=== PATIENT | male | born 1935 | race Caucasian/White ===

== ENCOUNTER 2017-11-04 11:18 | Inpatient (IN) | payer MEDICARE ==
[~2017-11-04] VITALS: Ht 167.6 cm; Wt 62.7 kg
[2017-11-04] VITALS (7 sets, daily range): BP systolic 115–139; BP diastolic 50–71
--- NOTE | ~2017-11-04 | PROC NOTE ---
[place], [place] PROCEDURE NOTE NAME: JANEL BRADEN UNIT #: [id number] ROOM: 424 DOCTOR: BRYN JORDAN BIRTHDATE: [birth year] DOS: 11/05/2017 MODIFIED BARIUM SWALLOW LOCATION: [facility], room 424, bed 1. ORDERING PHYSICIAN: Dr. Gibbs RADIOLOGIST: Dr. Recinos. BACKGROUND INFORMATION: The patient, an 82-year-old male was seen for modified barium swallow. This test was ordered to rule out aspiration. The patient was admitted to the Emergency Department after several days of shortness of breath, cough and diarrhea. He is diagnosed with acute respiratory failure, severe sepsis, pneumonia, hypertension, aortic valve replacement, GERD, peptic ulcer, CHF and COPD. The patient reports that he has been choking with liquids and feeling like foods are sticking in his throat. He currently receives a regular diet and thin liquids. He was alert and cooperative and able to follow all commands for the assessment. He was receiving oxygen via nasal cannula and no respiratory difficulties were observed. Oral peripheral examination revealed dry oral mucosa. The patient presented with top and bottom dentures, loose fitting bottom dentures were noted. Lingual, labial, and buccal skills were within normal limits in terms of strength, range of motion, and coordination. Volitional cough and swallow were adequate. METHODS AND MATERIALS USED FOR THE EXAM: The patient was positioned in the lateral plane and the exam was viewed under fluoroscopy. The patient was presented with a variety of consistencies to assess swallowing skills including applesauce mixed with barium presented in half teaspoon amounts, barium-coated cookie presented in bite size pieces and thin liquid barium taken by cup. The patient consumed liquids independently by cup and sip size amounts. ORAL PHASE: Adequate labial seal was achieved around cup and spoon with no anterior loss. Bolus formation and transit were adequate. Slow mastication of solid was observed. Piecemeal swallow was observed with puree and solid consistencies. The patient achieved adequate tongue to palate contact. Tongue to posterior pharyngeal wall contact was mildly impaired. Velar functioning was within normal limits with no nasal regurgitation. PHARYNGEAL PHASE: The pharyngeal swallow occurred within a timely manner. Laryngeal elevation and epiglottic function were within normal limits with no penetration or aspiration occurring with any consistency. Pooling in the vallecula was observed with puree and solids. This mostly cleared with cues to use liquid wash or a subsequent swallow. ESOPHAGEAL PHASE: This phase of the swallow was not formally assessed during this examination. IMPRESSIONS AND RECOMMENDATIONS: Based upon assessment results, this 82-year-old patient presents with a mild oropharyngeal dysphagia. He exhibited [place], [place] PROCEDURE NOTE NAME: JANEL BRADEN UNIT #: [id number] ROOM: 424 DOCTOR: BRYN JORDAN BIRTHDATE: [birth year] slow mastication of solid, piecemeal swallow with puree and solids and pooling in the vallecula, which mostly cleared when given cues to use subsequent swallow or liquid wash. No penetration or aspiration occurred with any consistency. Recommend the patient receive a soft diet and thin liquids. Recommend he implements safe swallow strategies such as small bites and sips, alternating food and liquid and double swallow to clear the pharynx. Followup therapy is recommended for tongue base range of motion exercises, education and use of safety strategies to ensure tolerance of highest level diet. Results and recommendations were shared with the patient and his nurse and they verbalized understanding. Thank you very much for this referral. Should you have any questions regarding this patient, please contact this speech pathologist at [phone]. BRYN JORDAN CM:PROCNOTE:PROCEDURE NOTE [id number] BRYN JORDAN
[~2017-11-04 11:18] MED LIST: ASPIRIN81 M1 PO; BUSPAR5 MG PO; COMBIVENT RESPIM4 GM INH; COUMADIN6 M1 PO; CRESTOR10 M1 PO; DIGOXIN0.125 MG PO; DULERA100; HYDROCHLOROTHIA1 TA2 PO; LIBRIUM10 MG PO; LIPOFEN50 MG PO; LOPRESSOR25 MG PO; LOSARTAN POTASS25 MG PO; OMEPRAZOLE20 MG PO; VITAMIN D1000 IU PO; XALATAN 0.005%2.5 ML INTRAOC
[2017-11-04] MEDS ORDERED: GOOD NEIGHBOR150 M1 PO (11:39)
[2017-11-04] MEDS ORDERED: COZAAR50 M1 PO (11:40)
[2017-11-04] MEDS ORDERED: METOPROLOL SUCC50 M2 PO (11:40)
[2017-11-04] MEDS ORDERED: PANTOPRAZOLE SO20 MG PO (11:41)
[2017-11-04] MEDS ORDERED: DIAZEPAM2 MG PO (11:41)
[2017-11-04] MEDS ORDERED: SYMB160 INH (11:42)
[2017-11-04 12:10] LABS: HEMATOCRIT 37.5 % (42.0-52.0); HEMOGLOBIN 12.1 g/dl (14.0-18.0); MEAN CORPUSCULAR HGB 30.3 pg (27.0-31.0); MEAN CORPUSCULAR HGB CONC 32.3 g/dl (33.0-37.0); MEAN PLATELET VOLUME 9.5 fl (9.6-12.3); PLATELET COUNT AUTOMATED 202 10*3/uL (130-400); RED BLOOD COUNT 3.99 10*6/uL (4.50-5.90); RED CELL DISTRI WIDTH 17.6 % (0-14.5); WHITE BLOOD COUNT 9.9 10*3/uL (4.8-10.8)
[2017-11-04 12:21] LABS: INTERNATIONAL NORM RATIO 2.4 (2.0-3.5)
[2017-11-04 12:26] LABS: ALKALINE PHOSPHATASE 85 U/L (45-117); BUN 35 mg/dl (7-24); CHLORIDE 104 mmol/L (98-107); CREATININE 1.51 mg/dL (0.70-1.30); LIPASE 80 U/L (73-393); POTASSIUM 4.1 mmol/L (3.5-5.1); SGOT/AST 12 IU/L (3-35); SGPT/ALT 19 U/L (12-78); SODIUM 138 mmol/L (136-145); TOTAL PROTEIN 7.9 gm/dL (6.4-8.2)
[2017-11-04 12:29] LABS: PLATELET SUFFICIENCY NORMAL (NORMAL); TOTAL CELLS COUNTED 100 #CELLS
[2017-11-04 12:30] LABS: BURR CELLS FEW; ROULEAUX SLIGHT
[2017-11-04 12:31] LABS: TROPONIN I < 0.015 ng/ml (<0.045)
[2017-11-04] MEDS ORDERED: METOPROLOL25 MG PO (15:59)
[2017-11-04] MEDS ORDERED: IRON325 M1 PO (16:00)
[2017-11-04] MEDS ORDERED: HYDROCHLOROTHIA25 M1 PO (16:02)
[2017-11-04] MEDS ORDERED: BUSPAR5 MG PO (16:03)
[2017-11-04] MEDS ORDERED: [UNRECOGNIZED DRUG - CODE] IM (16:59)
[2017-11-04] MEDS ORDERED: Coumadin3 MG PO (19:47)
[2017-11-04] MEDS ORDERED: COUMADIN6 M2 PO (19:47)
[2017-11-05] VITALS: BP 134/60
[2017-11-05 07:53] LABS: BASO % 0.2 % (0.0-1.0); EOS # 0.1 10*3/uL (0.0-0.4); EOS % 0.8 % (1.0-4.0); LYMPH # 0.5 10*3/uL (1.3-4.4); LYMPH % 8.4 % (27.0-41.0); MEAN CELL VOLUME 96.5 fl (80.0-94.0); MEAN CORPUSCULAR HGB 30.9 pg (27.0-31.0); MEAN PLATELET VOLUME 9.7 fl (9.6-12.3); MONO # 0.3 10*3/uL (0.1-1.0); MONO % 4.2 % (3.0-9.0); NEUT # 5.3 10*3/uL (2.3-7.9); NEUT % 85.8 % (47.0-73.0); PLATELET COUNT AUTOMATED 157 10*3/uL (130-400); RED BLOOD COUNT 3.11 10*6/uL (4.50-5.90); RED CELL DISTRI WIDTH 17.3 % (0-14.5); WHITE BLOOD COUNT 6.2 10*3/uL (4.8-10.8)
[2017-11-05 07:56] LABS: HEMOGLOBIN 9.6 g/dl (14.0-18.0)
[2017-11-05 08:00] VITALS: BP 124/64
[2017-11-05 08:18] LABS: ALBUMIN 2.1 gm/dl (3.1-4.5); CHLORIDE 111 mmol/L (98-107); CHOLESTEROL 89 mg/dL (<200); CREATININE 0.97 mg/dL (0.70-1.30); PHOSPHOROUS 2.3 mg/dL (2.5-4.9); POTASSIUM 3.7 mmol/L (3.5-5.1); SGOT/AST 14 IU/L (3-35); SGPT/ALT 12 U/L (12-78); SODIUM 143 mmol/L (136-145); TOTAL PROTEIN 5.8 gm/dL (6.4-8.2); TRIGLYCERIDES 142 mg/dl (<150); VLDL CHOLESTEROL 28 mg/dL (6-40)
[2017-11-05 08:23] LABS: INTERNATIONAL NORM RATIO 3.4 (2.0-3.5)
[2017-11-05 08:28] LABS: ALKALINE PHOSPHATASE 57 U/L (45-117); HDL CHOLESTEROL 27 mg/dl (40-60); LDL CHOLESTEROL 34 mg/dL (9-159)
[2017-11-05 08:38] LABS: BUN 23 mg/dl (7-24)
[2017-11-05 08:57] LABS: VITAMIN D, 25-HYDROXY 18.7 ng/mL (30-100)
[2017-11-05 12:00] VITALS: BP 134/65
[2017-11-05 16:00] VITALS: BP 102/49
[2017-11-05 20:00] VITALS: BP 116/55
[2017-11-06] VITALS: BP 128/74
[2017-11-06 07:24] LABS: BASO % 0.4 % (0.0-1.0); EOS # 0.2 10*3/uL (0.0-0.4); EOS % 3.9 % (1.0-4.0); HEMATOCRIT 28.7 % (42.0-52.0); LYMPH # 0.4 10*3/uL (1.3-4.4); MEAN CELL VOLUME 98.3 fl (80.0-94.0); MEAN CORPUSCULAR HGB 30.8 pg (27.0-31.0); MEAN CORPUSCULAR HGB CONC 31.4 g/dl (33.0-37.0); MEAN PLATELET VOLUME 9.5 fl (9.6-12.3); MONO # 0.4 10*3/uL (0.1-1.0); MONO % 6.5 % (3.0-9.0); NEUT # 4.3 10*3/uL (2.3-7.9); NEUT % 80.5 % (47.0-73.0); PLATELET COUNT AUTOMATED 161 10*3/uL (130-400); RED BLOOD COUNT 2.92 10*6/uL (4.50-5.90); RED CELL DISTRI WIDTH 17.3 % (0-14.5); WHITE BLOOD COUNT 5.4 10*3/uL (4.8-10.8)
[2017-11-06 07:38] LABS: BUN 17 mg/dl (7-24); CHLORIDE 115 mmol/L (98-107); CREATININE 0.89 mg/dL (0.70-1.30); SODIUM 146 mmol/L (136-145)
[2017-11-06 07:47] LABS: INTERNATIONAL NORM RATIO 3.9 (2.0-3.5)
[2017-11-06 08:00] VITALS: BP 140/74
[2017-11-06 12:00] VITALS: BP 154/65
[2017-11-06 16:00] VITALS: BP 124/55
[2017-11-06 20:00] VITALS: BP 100/85
[2017-11-07] VITALS: BP 136/64
[2017-11-07 08:00] VITALS: BP 114/54
[2017-11-07 08:08] LABS: HEMATOCRIT 27.9 % (42.0-52.0); MEAN CELL VOLUME 93.3 fl (80.0-94.0); MEAN CORPUSCULAR HGB 30.1 pg (27.0-31.0); MEAN CORPUSCULAR HGB CONC 32.3 g/dl (33.0-37.0); MEAN PLATELET VOLUME 9.3 fl (9.6-12.3); PLATELET COUNT AUTOMATED 162 10*3/uL (130-400); RED BLOOD COUNT 2.99 10*6/uL (4.50-5.90); RED CELL DISTRI WIDTH 16.9 % (0-14.5); WHITE BLOOD COUNT 3.9 10*3/uL (4.8-10.8)
[2017-11-07 08:31] LABS: OVALOCYTES FEW; PLATELET SUFFICIENCY NORMAL (NORMAL); POLYCHROMASIA SLIGHT; TOTAL CELLS COUNTED 100 #CELLS
[2017-11-07 08:37] LABS: ALBUMIN 2.3 gm/dl (3.1-4.5); ALKALINE PHOSPHATASE 59 U/L (45-117); BUN 20 mg/dl (7-24); CHLORIDE 110 mmol/L (98-107); POTASSIUM 3.3 mmol/L (3.5-5.1); SGOT/AST 12 IU/L (3-35); SGPT/ALT 20 U/L (12-78); SODIUM 144 mmol/L (136-145); TOTAL PROTEIN 6.1 gm/dL (6.4-8.2)
[2017-11-07 08:40] LABS: INTERNATIONAL NORM RATIO 3.8 (2.0-3.5)
[2017-11-07 12:00] VITALS: BP 112/50
[2017-11-07 16:00] VITALS: BP 118/66
[2017-11-07 20:00] VITALS: BP 115/51
[2017-11-08] VITALS: BP 125/77
[2017-11-08 08:00] VITALS: BP 130/54
[2017-11-08 08:18] LABS: HEMATOCRIT 29.6 % (42.0-52.0); HEMOGLOBIN 9.2 g/dl (14.0-18.0); MEAN CELL VOLUME 94.9 fl (80.0-94.0); MEAN CORPUSCULAR HGB 29.5 pg (27.0-31.0); MEAN CORPUSCULAR HGB CONC 31.1 g/dl (33.0-37.0); MEAN PLATELET VOLUME 9.6 fl (9.6-12.3); PLATELET COUNT AUTOMATED 207 10*3/uL (130-400); RED BLOOD COUNT 3.12 10*6/uL (4.50-5.90); RED CELL DISTRI WIDTH 17.2 % (0-14.5); WHITE BLOOD COUNT 6.7 10*3/uL (4.8-10.8)
[2017-11-08 08:39] LABS: BUN 28 mg/dl (7-24); CHLORIDE 112 mmol/L (98-107); CREATININE 1.06 mg/dL (0.70-1.30); POTASSIUM 3.8 mmol/L (3.5-5.1); SODIUM 145 mmol/L (136-145)
[2017-11-08 08:43] LABS: INTERNATIONAL NORM RATIO 3.2 (2.0-3.5)
[2017-11-08 09:20] LABS: OVALOCYTES MODERATE; PLATELET SUFFICIENCY NORMAL (NORMAL); ROULEAUX SLIGHT; TOTAL CELLS COUNTED 100 #CELLS
[2017-11-08 12:00] VITALS: BP 136/56
[2017-11-08 16:00] VITALS: BP 139/63
[2017-11-08 20:00] VITALS: BP 119/59
[2017-11-09] VITALS: BP 141/70
[2017-11-09 08:00] VITALS: BP 150/74
[2017-11-09 08:38] LABS: INTERNATIONAL NORM RATIO 2.7 (2.0-3.5)
[2017-11-09] MEDS ORDERED: MECLIZINE HCL25 M2 PO (10:45)
[2017-11-09] MEDS ORDERED: Coumadin3 MG PO (10:47)
[2017-11-09] MEDS ORDERED: DOXYCYCLINE100 M3 PO (10:47)
[2017-11-09] MEDS ORDERED: FLAGYL500 MG PO (10:47)
[2017-11-09 12:00] VITALS: BP 141/85
== END 2017-11-09 16:42 | disposition home health service (06) | DRG 871 ==
LOC: ED 11:18 → 4E 13:41 → EDHOLD 13:41 → 4E 13:57
PROVIDERS: Emergency Medicine; Internal Medicine; Internal Medicine Hospice and Palliative Medicine; Student in an Organized Health Care Education/Training Program
DX: A41.9 Sepsis, unspecified organism (principal); J69.0 Pneumonitis due to inhalation of food and vomit; J96.00 Acute respiratory failure, unspecified whether with hypoxia or hypercapnia; N17.0 Acute kidney failure with tubular necrosis; E44.0 Moderate protein-calorie malnutrition; K57.32 Diverticulitis of large intestine without perforation or abscess without bleeding; E83.39 Other disorders of phosphorus metabolism; I50.32 Chronic diastolic (congestive) heart failure; J90 Pleural effusion, not elsewhere classified; E87.2 Acidosis; J98.11 Atelectasis; I11.0 Hypertensive heart disease with heart failure; D64.9 Anemia, unspecified; R65.20 Severe sepsis without septic shock; E83.41 Hypermagnesemia; E80.6 Other disorders of bilirubin metabolism; E78.00 Pure hypercholesterolemia, unspecified; F41.1 Generalized anxiety disorder; R73.9 Hyperglycemia, unspecified; J43.9 Emphysema, unspecified; M34.9 Systemic sclerosis, unspecified; N40.0 Benign prostatic hyperplasia without lower urinary tract symptoms; J84.10 Pulmonary fibrosis, unspecified; K21.9 Gastro-esophageal reflux disease without esophagitis; E78.5 Hyperlipidemia, unspecified; K57.30 Diverticulosis of large intestine without perforation or abscess without bleeding; K27.9 Peptic ulcer, site unspecified, unspecified as acute or chronic, without hemorrhage or perforation; R13.12 Dysphagia, oropharyngeal phase; Z87.442 Personal history of urinary calculi; Z95.2 Presence of prosthetic heart valve; Z90.49 Acquired absence of other specified parts of digestive tract; Z85.820 Personal history of malignant melanoma of skin; Z87.891 Personal history of nicotine dependence; Z88.6 Allergy status to analgesic agent; Z79.899 Other long term (current) drug therapy; Z79.82 Long term (current) use of aspirin; Z79.01 Long term (current) use of anticoagulants; Z68.21 Body mass index [BMI] 21.0-21.9, adult

== ENCOUNTER 2018-01-06 13:45 | Inpatient (IN) | payer MEDICARE ==
[2018-01-06] VITALS (8 sets, daily range): BP systolic 118–142; BP diastolic 55–80
[~2018-01-06] VITALS: Ht 170.1 cm; Wt 62.1 kg
--- NOTE | ~2018-01-06 | PROC NOTE ---
[place], [place] PROCEDURE NOTE NAME: JANEL BRADEN UNIT #: [id number] ROOM: 508 DOCTOR: JASE BRANHAM BIRTHDATE: [birth year] DOS: 01/08/2018 MBSS REPORT REFERRING PHYSICIAN: Dr. Gibbs. RADIOLOGIST: Dr. Recinos. The patient was seen on 01/08/2018 for an MBS. He was admitted to the hospital on 01/06/2018 and diagnosed with pneumonia. He is known to this service through previous hospital admission in October 2017. During this time, an MBS was completed, prolonged mastication, piecemeal swallow and pharyngeal residue were noted at this time. He was recommended a diet of soft foods and thin liquids as well as aspiration precautions (awake, alert and upright with all p.o., small bites/sips, alternating bites/sips and multiple swallows). He is currently on a regular diet with thin liquids. GENERAL COMMENTS: The patient was seated upright in chair. He was awake, alert, oriented and pleasant. The patient recalled recent dysphagia evaluation and recommended strategies. MATERIALS: Exam was viewed in the lateral plane. The patient self fed the following barium impregnated consistencies, single of thin liquid via cup x 2, multiple consecutive sips of thin liquids via cup x 1, teaspoons of pureed x 1 and bite of coarse solids x 1. ORAL PHASE: Adequate bolus acceptance with no anterior loss noted. Anterior, posterior bolus transit was adequate and timely. The patient demonstrated prolonged mastication with solid consistency. No oral residue appreciated. PHARYNGEAL PHASE: The patient displayed adequate swallow initiation time, hyolaryngeal excursion and epiglottic retroflexion. The patient exhibited one instance of transient penetration during his first sip of thin liquid. No penetration/aspiration occurred during the remaining presentations of thin liquid, puree or solids. False Positive coughing was noted. Base of tongue to posterior pharyngeal wall contact was mildly reduced with resulting mild amounts of residue noted in the piriform sinuses and on the posterior pharyngeal wall across consistencies, but this cleared with subsequent swallows. UES: Unremarkable. IMPRESSION: The patient presents with normal swallowing function at this time. FINDINGS: This day were consistent with previous MBS findings (October 2017). One instance of transient penetration noted; however, no aspiration occurred. The patient with pharyngeal residue; however, this cleared with subsequent swallows. RECOMMENDATIONS: 1. Continue current diet of regular food with thin liquids (discussed choosing [place], [place] PROCEDURE NOTE NAME: JANEL BRADEN UNIT #: [id number] ROOM: 508 DOCTOR: JASE BRANHAM BIRTHDATE: [birth year] softer options with the patient given prolonged mastication). 2. Aspiration precautions. Awake, alert and upright for all p.o., small bites/sips, alternating bites/sips, multiple swallows, oral care at least twice a day. PLAN OF CARE: No further followup is indicated at this time. Please reconsult if additional concerns for dysphagia/aspiration arise. Thank you for consulting. Please contact the DIRECTOR OF RESEARCH Department at [phone] with any questions/concerns. Jase Dinero CM:PROCNOTE:PROCEDURE NOTE [id number] JASE BRANHAM
--- NOTE | ~2018-01-06 | PROC NOTE ---
[place], [place] PROCEDURE NOTE NAME: JANEL BRADEN UNIT #: [id number] ROOM: 508 DOCTOR: JASE BRANHAM BIRTHDATE: [birth year] DOS: 01/08/2018 MBSS REPORT REFERRING PHYSICIAN: Dr. Gibbs. Radiologist: Dr. Recinos. HISTORY OF PRESENT ILLNESS: The patient was seen on 01/08/2018 for an MBS. He was admitted to the hospital on 01/06/2018 and diagnosed with pneumonia. He is known to this service through previous hospital admission in October 2017. During this time, an MBS was completed. Prolonged mastication piecemeal swallow and pharyngeal residue were noted at this time. He was recommended a diet of soft foods and thin liquids as well as aspiration precautions (awake, alert and upright for all p.o. small bites/sips, alternating bites/sips and multiple swallows). He is currently on a regular diet with thin liquids. GENERAL COMMENTS: The patient was seated upright in chair. He was awake, alert, oriented and pleasant. The patient recalled recent dysphagia evaluation and recommended strategies. MATERIALS: Exam was viewed in the lateral plane. The patient self-said the following barium impregnated consistencies; single sips of thin liquids via cup x 2, multiple consecutive sips of thin liquids via cup x 1, teaspoon of pureed x 1 and bites of coarse solids x 1. ORAL PHASE: Adequate bolus acceptance with no anterior loss noted. Anterior to posterior bolus transit was adequate and timely. The patient demonstrated prolonged mastication with solid consistency. No oral residue appreciated. PHARYNGEAL PHASE: Patient displayed adequate swallow initiation time, hyolaryngeal excursion and epiglottic retroflexion. The patient exhibited one instance of transient penetration during his first sip of thin liquid. No penetration/aspiration occurred during the remaining presentations of thin liquid, puree or solids. False positive coughing was noted. Base of tongue to posterior pharyngeal wall contact was mildly reduced with resulting mild amounts of residue noted in the piriform sinuses and on the posterior pharyngeal wall across consistencies, but this cleared with subsequent swallows. UES unremarkable. IMPRESSION: The patient presents with normal swallowing function at this time. Findings on this date were consistent with previous MBS findings (October 2017). One instance of transient penetration noted; however, no aspiration occurred. The patient with pharyngeal residue; however, this cleared with subsequent swallows. RECOMMENDATIONS: 1. Continue current diet of regular food with thin liquids (discussed using softer options with the patient given prolonged mastication). [place], [place] PROCEDURE NOTE NAME: JANEL BRADEN UNIT #: [id number] ROOM: [facility] DOCTOR: JASE BRANHAM BIRTHDATE: [birth year] 2. Aspiration precautions. Awake, alert, in upright for all p.o., small bites/sips, alternating bites/sips, multiple swallows, oral care at least twice a day. PLAN OF CARE: No further followup is indicated at this time. Please reconsult if additional concerns for dysphagia/aspiration arise. Thank you for consulting. Please contact the [facility] ON CALL MEDICAL ASSISTANT Department at [phone] with any questions/concerns. Jase Dinero CM:PROCNOTE:PROCEDURE NOTE [id number] JASE BRANHAM
[~2018-01-06 13:45] MED LIST changes: +COUMADIN6 M2 PO; +COZAAR50 M1 PO; +Coumadin3 MG PO; +DIAZEPAM2 MG PO; +DOXYCYCLINE100 M3 PO; +FLAGYL500 MG PO; +GOOD NEIGHBOR150 M1 PO; +HYDROCHLOROTHIA25 M1 PO; +IRON325 M1 PO; +MECLIZINE HCL25 M2 PO; +METOPROLOL SUCC50 M2 PO; +METOPROLOL25 MG PO; +PANTOPRAZOLE SO20 MG PO; +SYMB160 INH; +[UNRECOGNIZED DRUG - CODE] IM
[2018-01-06 14:35] LABS: BASO % 0.2 % (0.0-1.0); EOS % 0.4 % (1.0-4.0); HEMATOCRIT 36.3 % (42.0-52.0); HEMOGLOBIN 11.9 g/dl (14.0-18.0); LYMPH # 0.5 10*3/uL (1.3-4.4); LYMPH % 6.2 % (27.0-41.0); MEAN CELL VOLUME 99.5 fl (80.0-94.0); MEAN CORPUSCULAR HGB 32.6 pg (27.0-31.0); MEAN CORPUSCULAR HGB CONC 32.8 g/dl (33.0-37.0); MEAN PLATELET VOLUME 9.2 fl (9.6-12.3); MONO # 0.7 10*3/uL (0.1-1.0); NEUT # 7.3 10*3/uL (2.3-7.9); PLATELET COUNT AUTOMATED 223 10*3/uL (130-400); RED BLOOD COUNT 3.65 10*6/uL (4.50-5.90); RED CELL DISTRI WIDTH 16.9 % (0-14.5); WHITE BLOOD COUNT 8.5 10*3/uL (4.8-10.8)
[2018-01-06 14:43] LABS: INTERNATIONAL NORM RATIO 2.5 (2.0-3.5)
[2018-01-06 14:59] LABS: BUN 30 mg/dl (7-24); CHLORIDE 103 mmol/L (98-107); CREATININE 1.26 mg/dL (0.70-1.30); POTASSIUM 3.6 mmol/L (3.5-5.1); SODIUM 138 mmol/L (136-145); TROPONIN I < 0.015 ng/ml (<0.045)
[2018-01-06] MEDS ORDERED: COUMADIN6 M2 PO (15:18)
[2018-01-06] MEDS ORDERED: COUMADIN10 M1 PO (15:20)
[2018-01-07] VITALS: BP 120/52
[2018-01-07 07:01] LABS: HEMATOCRIT 30.8 % (42.0-52.0); HEMOGLOBIN 10.1 g/dl (14.0-18.0); MEAN CELL VOLUME 98.4 fl (80.0-94.0); MEAN CORPUSCULAR HGB 32.3 pg (27.0-31.0); MEAN CORPUSCULAR HGB CONC 32.8 g/dl (33.0-37.0); MEAN PLATELET VOLUME 9.5 fl (9.6-12.3); PLATELET COUNT AUTOMATED 210 10*3/uL (130-400); RED BLOOD COUNT 3.13 10*6/uL (4.50-5.90); WHITE BLOOD COUNT 5.6 10*3/uL (4.8-10.8)
[2018-01-07 07:35] LABS: ALBUMIN 2.4 gm/dl (3.1-4.5); BUN 26 mg/dl (7-24); CHLORIDE 104 mmol/L (98-107); POTASSIUM 3.6 mmol/L (3.5-5.1); SODIUM 138 mmol/L (136-145)
[2018-01-07 07:37] LABS: PLATELET SUFFICIENCY NORMAL (NORMAL); TOTAL CELLS COUNTED 100 #CELLS
[2018-01-07 07:40] LABS: INTERNATIONAL NORM RATIO 3.9 (2.0-3.5)
[2018-01-07 07:42] LABS: ALKALINE PHOSPHATASE 68 U/L (45-117); CHOLESTEROL 83 mg/dL (<200); CREATININE 1.09 mg/dL (0.70-1.30); FREE T4 1.17 ng/dl (0.76-1.46); HDL CHOLESTEROL 32 mg/dl (40-60); LDL CHOLESTEROL 33 mg/dL (9-159); PHOSPHOROUS 3.5 mg/dL (2.5-4.9); SGOT/AST 14 IU/L (3-35); SGPT/ALT 14 U/L (12-78); TOTAL PROTEIN 6.4 gm/dL (6.4-8.2); TRIGLYCERIDES 88 mg/dl (<150); VLDL CHOLESTEROL 18 mg/dL (6-40)
[2018-01-07 08:00] VITALS: BP 131/56
[2018-01-07 08:01] LABS: BILIRUBIN 1+ (NEGATIVE); BLOOD NEGATIVE (NEGATIVE); CLARITY CLEAR (CLEAR); COLOR YELLOW (YELLOW); GLUCOSE NEGATIVE (NEGATIVE); KETONE NEGATIVE (NEGATIVE); LEUKO ESTERASE NEGATIVE (NEGATIVE); NITRITE NEGATIVE (NEGATIVE); UROBILINOGEN 0.2 E.U./dl (0.2-1.0)
[2018-01-07 08:08] LABS: BACTERIA TRACE; MUCOUS TRACE; RBC 0-2 rbc/hpf (0-2)
[2018-01-07 16:00] VITALS: BP 101/47
[2018-01-07 20:00] VITALS: BP 110/56
[2018-01-08] VITALS: BP 116/58
[2018-01-08 06:20] LABS: BASO % 0.2 % (0.0-1.0); HEMATOCRIT 29.5 % (42.0-52.0); HEMOGLOBIN 9.7 g/dl (14.0-18.0); LYMPH # 0.3 10*3/uL (1.3-4.4); LYMPH % 5.5 % (27.0-41.0); MEAN CELL VOLUME 100.3 fl (80.0-94.0); MEAN CORPUSCULAR HGB CONC 32.9 g/dl (33.0-37.0); MONO # 0.5 10*3/uL (0.1-1.0); MONO % 7.9 % (3.0-9.0); NEUT # 5.3 10*3/uL (2.3-7.9); NEUT % 85.6 % (47.0-73.0); PLATELET COUNT AUTOMATED 192 10*3/uL (130-400); RED BLOOD COUNT 2.94 10*6/uL (4.50-5.90); RED CELL DISTRI WIDTH 17.2 % (0-14.5); WHITE BLOOD COUNT 6.2 10*3/uL (4.8-10.8)
[2018-01-08 06:49] LABS: BUN 32 mg/dl (7-24); CHLORIDE 109 mmol/L (98-107); POTASSIUM 3.4 mmol/L (3.5-5.1); SODIUM 143 mmol/L (136-145)
[2018-01-08 08:00] VITALS: BP 109/50
[2018-01-08 12:00] VITALS: BP 118/64
[2018-01-08 16:00] VITALS: BP 132/68
[2018-01-08 20:00] VITALS: BP 136/52
[2018-01-09] VITALS: BP 116/60
[2018-01-09 06:48] LABS: BASO % 0.3 % (0.0-1.0); EOS # 0.1 10*3/uL (0.0-0.4); EOS % 1.5 % (1.0-4.0); HEMATOCRIT 30.1 % (42.0-52.0); HEMOGLOBIN 9.7 g/dl (14.0-18.0); LYMPH # 0.7 10*3/uL (1.3-4.4); LYMPH % 11.1 % (27.0-41.0); MEAN CELL VOLUME 101.7 fl (80.0-94.0); MEAN CORPUSCULAR HGB 32.8 pg (27.0-31.0); MEAN CORPUSCULAR HGB CONC 32.2 g/dl (33.0-37.0); MEAN PLATELET VOLUME 9.1 fl (9.6-12.3); MONO # 0.6 10*3/uL (0.1-1.0); NEUT # 4.8 10*3/uL (2.3-7.9); NEUT % 77.6 % (47.0-73.0); PLATELET COUNT AUTOMATED 239 10*3/uL (130-400); RED BLOOD COUNT 2.96 10*6/uL (4.50-5.90); RED CELL DISTRI WIDTH 17.2 % (0-14.5); WHITE BLOOD COUNT 6.1 10*3/uL (4.8-10.8)
[2018-01-09 07:12] LABS: BUN 26 mg/dl (7-24); CHLORIDE 111 mmol/L (98-107); CREATININE 0.97 mg/dL (0.70-1.30); INTERNATIONAL NORM RATIO 3.2 (2.0-3.5); POTASSIUM 4.2 mmol/L (3.5-5.1); SODIUM 143 mmol/L (136-145)
[2018-01-09 08:00] VITALS: BP 119/54
[2018-01-09 12:00] VITALS: BP 120/59
[2018-01-09 16:00] VITALS: BP 126/56
[2018-01-09 20:00] VITALS: BP 155/66
[2018-01-10] VITALS: BP 139/78
[2018-01-10 07:22] LABS: INTERNATIONAL NORM RATIO 2.4 (2.0-3.5)
[2018-01-10 08:00] VITALS: BP 132/62
[2018-01-10 12:00] VITALS: BP 135/60
[2018-01-10 16:07] VITALS: BP 147/74
[2018-01-10 20:24] VITALS: BP 125/59
[2018-01-11] VITALS: BP 91/50
[2018-01-11 04:00] VITALS: BP 145/70
[2018-01-11 06:24] LABS: INTERNATIONAL NORM RATIO 2.4 (2.0-3.5)
[2018-01-11 08:00] VITALS: BP 122/46
[2018-01-11] MEDS ORDERED: OXYGEN NAS (11:03)
[2018-01-11] MEDS ORDERED: DOXYCYCLINE100 M3 PO (11:03)
[2018-01-11 12:00] VITALS: BP 131/61
== END 2018-01-11 13:37 | disposition home or self-care (01) | DRG 871 ==
LOC: ED 13:45 → 5E 18:32 → EDHOLD 18:32 → 5E 18:38
PROVIDERS: Emergency Medicine; Hospitalist; Internal Medicine; Internal Medicine Nephrology
PROC: BD1BYZZ Fluoroscopy of Mouth/Oropharynx using Other Contrast (ICD-10-PCS; principal; 2018-01-08)
DX: A41.9 Sepsis, unspecified organism (principal); J18.1 Lobar pneumonia, unspecified organism; I11.0 Hypertensive heart disease with heart failure; J44.0 Chronic obstructive pulmonary disease with (acute) lower respiratory infection; I50.32 Chronic diastolic (congestive) heart failure; D53.9 Nutritional anemia, unspecified; K76.0 Fatty (change of) liver, not elsewhere classified; R73.9 Hyperglycemia, unspecified; E78.00 Pure hypercholesterolemia, unspecified; K57.30 Diverticulosis of large intestine without perforation or abscess without bleeding; K21.9 Gastro-esophageal reflux disease without esophagitis; F41.1 Generalized anxiety disorder; Z87.891 Personal history of nicotine dependence; Z79.01 Long term (current) use of anticoagulants; Z88.5 Allergy status to narcotic agent; Z79.2 Long term (current) use of antibiotics; Z51.81 Encounter for therapeutic drug level monitoring; Z79.82 Long term (current) use of aspirin; Z79.899 Other long term (current) drug therapy; Z90.49 Acquired absence of other specified parts of digestive tract; Z95.2 Presence of prosthetic heart valve; Z72.89 Other problems related to lifestyle; Z82.49 Family history of ischemic heart disease and other diseases of the circulatory system; Z85.820 Personal history of malignant melanoma of skin; Z87.442 Personal history of urinary calculi

== ENCOUNTER 2018-09-13 11:41 | Emergency (ER) | payer MEDICARE ==
[~2018-09-13] VITALS: Ht 167.6 cm; Wt 57.2 kg
[~2018-09-13 11:41] MED LIST changes: +COUMADIN10 M1 PO; +OXYGEN NAS
[2018-09-13 12:16] VITALS: BP 147/80
== END 2018-09-13 13:45 | disposition home or self-care (01) ==
LOC: ED 11:41
DX: I10 Essential (primary) hypertension (principal); H53.8 Other visual disturbances; Z88.5 Allergy status to narcotic agent; Z79.899 Other long term (current) drug therapy; Z79.82 Long term (current) use of aspirin; Z79.01 Long term (current) use of anticoagulants; Z87.442 Personal history of urinary calculi; Z87.891 Personal history of nicotine dependence

== ENCOUNTER 2018-10-28 17:04 | Emergency (ER) | payer OTHER ==
[~2018-10-28] VITALS: Ht 167.6 cm; Wt 56.2 kg
[2018-10-28 17:06] VITALS: BP 179/96
[2018-10-28 17:47] LABS: BASO % 0.5 % (0.0-1.0); EOS # 0.1 10*3/uL (0.0-0.4); EOS % 1.1 % (1.0-4.0); HEMATOCRIT 43.1 % (42.0-52.0); HEMOGLOBIN 14.2 g/dl (14.0-18.0); LYMPH # 1.3 10*3/uL (1.3-4.4); LYMPH % 15.6 % (27.0-41.0); MEAN CELL VOLUME 100.2 fl (80.0-94.0); MEAN CORPUSCULAR HGB CONC 32.9 g/dl (33.0-37.0); MEAN PLATELET VOLUME 8.7 fl (9.6-12.3); MONO # 0.5 10*3/uL (0.1-1.0); MONO % 6.3 % (3.0-9.0); NEUT # 6.5 10*3/uL (2.3-7.9); NEUT % 75.4 % (47.0-73.0); PLATELET COUNT AUTOMATED 379 10*3/uL (130-400); RED CELL DISTRI WIDTH 13.6 % (0-14.5); WHITE BLOOD COUNT 8.6 10*3/uL (4.8-10.8)
[2018-10-28 17:58] LABS: ACT PARTIAL THROMBO TIME 55.5 SECONDS (20.8-31.5); INTERNATIONAL NORM RATIO 4.2 (2.0-3.5)
[2018-10-28 17:59] LABS: BILIRUBIN NEGATIVE (NEGATIVE); BLOOD TRACE-INTACT (NEGATIVE); CLARITY CLEAR (CLEAR); COLOR YELLOW (YELLOW); GLUCOSE NEGATIVE (NEGATIVE); KETONE NEGATIVE (NEGATIVE); LEUKO ESTERASE NEGATIVE (NEGATIVE); NITRITE NEGATIVE (NEGATIVE); PH 6.5 (5.0-9.0); SPECIFIC GRAVITY 1.025 (1.005-1.030); UROBILINOGEN 0.2 E.U./dl (0.2-1.0)
[2018-10-28 18:02] LABS: ALBUMIN 2.9 gm/dl (3.1-4.5); ALKALINE PHOSPHATASE 90 U/L (45-117); BUN 13 mg/dl (7-24); CHLORIDE 107 mmol/L (98-107); CREATININE 1.04 mg/dL (0.70-1.30); POTASSIUM 3.9 mmol/L (3.5-5.1); SGOT/AST 25 IU/L (3-35); SGPT/ALT 26 U/L (12-78); SODIUM 143 mmol/L (136-145); TOTAL PROTEIN 7.3 gm/dL (6.4-8.2)
[2018-10-28 18:15] LABS: BACTERIA 1+; EPITHELIAL CELLS 0-2; HYALINE CAST 0-3
== END 2018-10-28 19:40 | disposition home or self-care (01) ==
LOC: ED 17:04
PROVIDERS: Physician Assistant
DX: R79.1 Abnormal coagulation profile (principal); R05 Cough; Z88.5 Allergy status to narcotic agent; Z79.2 Long term (current) use of antibiotics; Z79.82 Long term (current) use of aspirin; Z79.01 Long term (current) use of anticoagulants; Z79.899 Other long term (current) drug therapy; Z87.442 Personal history of urinary calculi; Z90.49 Acquired absence of other specified parts of digestive tract; Z87.891 Personal history of nicotine dependence

== ENCOUNTER → 2018-11-01 | Outpatient (CLI) | payer OTHER, MEDICARE ==
[2018-11-01 08:10] LABS: ACT PARTIAL THROMBO TIME 29.6 SECONDS (20.8-31.5); INTERNATIONAL NORM RATIO 1.1 (2.0-3.5)
== END | disposition home or self-care (01) ==
LOC: LAB 07:46
PROVIDERS: Physician Assistant
DX: Z79.01 Long term (current) use of anticoagulants (principal)

== ENCOUNTER 2018-12-23 09:44 | Emergency (ER) | payer OTHER, MEDICARE ==
[~2018-12-23] VITALS: Ht 167.6 cm; Wt 56.2 kg
[2018-12-23 09:45] VITALS: BP 163/60
[2018-12-23 10:05] LABS: BASO # 0.1 10*3/uL (0.0-0.1); BASO % 0.7 % (0.0-1.0); EOS # 0.1 10*3/uL (0.0-0.4); EOS % 1.2 % (1.0-4.0); HEMOGLOBIN 13.8 g/dl (14.0-18.0); LYMPH # 1.1 10*3/uL (1.3-4.4); LYMPH % 16.6 % (27.0-41.0); MEAN CELL VOLUME 104.5 fl (80.0-94.0); MEAN CORPUSCULAR HGB 34.3 pg (27.0-31.0); MEAN CORPUSCULAR HGB CONC 32.9 g/dl (33.0-37.0); MEAN PLATELET VOLUME 9.4 fl (9.6-12.3); MONO # 0.5 10*3/uL (0.1-1.0); MONO % 7.5 % (3.0-9.0); NEUT % 73.7 % (47.0-73.0); PLATELET COUNT AUTOMATED 231 10*3/uL (130-400); RED BLOOD COUNT 4.02 10*6/uL (4.50-5.90); RED CELL DISTRI WIDTH 14.6 % (0-14.5); WHITE BLOOD COUNT 6.8 10*3/uL (4.8-10.8)
[2018-12-23 10:12] LABS: INTERNATIONAL NORM RATIO 1.2 (2.0-3.5)
[2018-12-23 10:35] LABS: ALBUMIN 3.4 gm/dl (3.1-4.5); ALKALINE PHOSPHATASE 82 U/L (45-117); BUN 18 mg/dl (7-24); CHLORIDE 108 mmol/L (98-107); CREATININE 1.03 mg/dL (0.70-1.30); POTASSIUM 4.3 mmol/L (3.5-5.1); SGOT/AST 16 IU/L (3-35); SGPT/ALT 24 U/L (12-78); SODIUM 141 mmol/L (136-145); TOTAL PROTEIN 6.8 gm/dL (6.4-8.2)
== END 2018-12-23 14:20 | disposition home or self-care (01) ==
LOC: ED 09:44
PROVIDERS: Student in an Organized Health Care Education/Training Program
DX: R79.1 Abnormal coagulation profile (principal); J44.9 Chronic obstructive pulmonary disease, unspecified; I11.0 Hypertensive heart disease with heart failure; I50.9 Heart failure, unspecified; K21.9 Gastro-esophageal reflux disease without esophagitis; E78.00 Pure hypercholesterolemia, unspecified; Z90.49 Acquired absence of other specified parts of digestive tract; Z98.890 Other specified postprocedural states; Z79.01 Long term (current) use of anticoagulants; Z87.891 Personal history of nicotine dependence; Z87.442 Personal history of urinary calculi; Z88.5 Allergy status to narcotic agent; Z79.82 Long term (current) use of aspirin; Z79.899 Other long term (current) drug therapy

== ENCOUNTER → 2018-12-27 | Outpatient (CLI) | payer MEDICARE ==
[2018-12-27 09:04] LABS: INTERNATIONAL NORM RATIO 1.5 (2.0-3.5)
== END | disposition home or self-care (01) ==
LOC: LAB 08:11
PROVIDERS: Emergency Medicine
DX: Z79.01 Long term (current) use of anticoagulants (principal)

== ENCOUNTER → 2020-02-10 | Outpatient (CLI) | payer OTHER, MEDICARE ==
[2020-02-10 14:34] LABS: BASO # 0.1 10*3/uL (0.0-0.1); BASO % 0.5 % (0.0-1.0); EOS # 0.1 10*3/uL (0.0-0.4); EOS % 1.3 % (1.0-4.0); HEMATOCRIT 41.2 % (42.0-52.0); LYMPH # 1.5 10*3/uL (1.3-4.4); LYMPH % 14.8 % (27.0-41.0); MEAN CELL VOLUME 100.5 fl (80.0-94.0); MEAN CORPUSCULAR HGB 32.4 pg (27.0-31.0); MEAN CORPUSCULAR HGB CONC 32.3 g/dl (33.0-37.0); MEAN PLATELET VOLUME 9.6 fl (9.6-12.3); MONO # 0.6 10*3/uL (0.1-1.0); MONO % 6.2 % (3.0-9.0); NEUT # 7.7 10*3/uL (2.3-7.9); NEUT % 76.8 % (47.0-73.0); PLATELET COUNT AUTOMATED 249 10*3/uL (130-400); RED CELL DISTRI WIDTH 14.1 % (0-14.5)
[2020-02-10 14:46] LABS: INTERNATIONAL NORM RATIO 2.7 (2.0-3.5)
== END | disposition home or self-care (01) ==
LOC: LAB 13:54
PROVIDERS: Specialist
DX: Z79.01 Long term (current) use of anticoagulants (principal)

== ENCOUNTER → 2020-03-20 | Outpatient (CLI) | payer OTHER | END | disposition home or self-care (01) | LOC: LAB 08:35 | PROVIDERS: Specialist | DX: Z79.01 Long term (current) use of anticoagulants (principal) ==

== ENCOUNTER → 2020-04-04 | Outpatient (CLI) | payer MEDICARE ==
[2020-04-04 11:55] LABS: BASO % 0.5 % (0.0-1.0); EOS # 0.1 10*3/uL (0.0-0.4); EOS % 1.5 % (1.0-4.0); HEMATOCRIT 39.2 % (42.0-52.0); LYMPH # 1.5 10*3/uL (1.3-4.4); LYMPH % 24.8 % (27.0-41.0); MEAN CELL VOLUME 101.3 fl (80.0-94.0); MEAN CORPUSCULAR HGB 32.8 pg (27.0-31.0); MEAN CORPUSCULAR HGB CONC 32.4 g/dl (33.0-37.0); MEAN PLATELET VOLUME 9.5 fl (9.6-12.3); MONO # 0.5 10*3/uL (0.1-1.0); MONO % 7.8 % (3.0-9.0); NEUT # 3.9 10*3/uL (2.3-7.9); NEUT % 65.1 % (47.0-73.0); PLATELET COUNT AUTOMATED 202 10*3/uL (130-400); RED BLOOD COUNT 3.87 10*6/uL (4.50-5.90); RED CELL DISTRI WIDTH 14.2 % (0-14.5)
[2020-04-04 13:32] LABS: INTERNATIONAL NORM RATIO 6.3 (2.0-3.5)
== END | disposition home or self-care (01) ==
LOC: LAB 11:23
PROVIDERS: Specialist
DX: I10 Essential (primary) hypertension (principal); Z79.01 Long term (current) use of anticoagulants

== ENCOUNTER 2020-06-18 15:24 | Inpatient (IN) | payer MEDICARE ==
[2020-06-18] VITALS (8 sets, daily range): BP systolic 100–141; BP diastolic 57–74
[~2020-06-18] VITALS: Ht 167.6 cm; Wt 60.3 kg
[~2020-06-18 15:24] MED LIST changes: -COUMADIN10 M1 PO; +Coumadin2 MG PO
[2020-06-18 16:06] LABS: HEMATOCRIT 31.8 % (42.0-52.0); MEAN CELL VOLUME 116.1 fl (80.0-94.0); MEAN CORPUSCULAR HGB 33.9 pg (27.0-31.0); MEAN CORPUSCULAR HGB CONC 29.2 g/dl (33.0-37.0); MEAN PLATELET VOLUME 11.5 fl (9.6-12.3); NUCLEATED RED BLOOD CELL 0.4 % (0.0-0.0); PLATELET COUNT AUTOMATED 122 10*3/uL (130-400); RED BLOOD COUNT 2.74 10*6/uL (4.50-5.90); RED CELL DISTRI WIDTH 19.4 % (0-14.5); WHITE BLOOD COUNT 11.1 10*3/uL (4.8-10.8)
[2020-06-18 16:18] LABS: ACT PARTIAL THROMBO TIME 31.6 SECONDS (20.0-32.1); INTERNATIONAL NORM RATIO 2.6 (2.0-3.5)
[2020-06-18 16:24] LABS: ALBUMIN 2.8 gm/dl (3.1-4.5); CREATININE 1.53 mg/dL (0.70-1.30); POTASSIUM 3.7 mmol/L (3.5-5.1); TOTAL PROTEIN 5.9 gm/dL (6.4-8.2)
[2020-06-18 16:31] LABS: TROPONIN I 0.177 ng/ml (<0.045)
[2020-06-18 16:58] LABS: BURR CELLS FEW; PLATELET SUFFICIENCY NORMAL (NORMAL); TOTAL CELLS COUNTED 100 #CELLS
[2020-06-18 17:42] LABS: BILIRUBIN 2+; BLOOD 2+ (NEGATIVE); CLARITY CLOUDY (CLEAR); COLOR YELLOW (YELLOW); GLUCOSE NEGATIVE; KETONE TRACE; LEUKO ESTERASE TRACE (NEGATIVE); NITRITE NEGATIVE (NEGATIVE); RBC 21-30 rbc/hpf (0-2); SPECIFIC GRAVITY 1.025 (1.001-1.030)
[2020-06-18 17:43] LABS: BACTERIA 2+; MUCOUS 1+
[2020-06-18 18:53] LABS: CREATININE 1.47 mg/dL (0.70-1.30); POTASSIUM 3.5 mmol/L (3.5-5.1)
[2020-06-18 21:14] LABS: CREATININE 1.41 mg/dL (0.70-1.30); POTASSIUM 3.4 mmol/L (3.5-5.1)
[2020-06-19] VITALS (12 sets, daily range): BP systolic 108–137; BP diastolic 39–84
[2020-06-19 00:27] LABS: BUN 53 mg/dl (7-24); CHLORIDE 126 mmol/L (98-107); CREATININE 1.33 mg/dL (0.70-1.30); POTASSIUM 3.3 mmol/L (3.5-5.1); SODIUM 155 mmol/L (136-145)
[2020-06-19 05:54] LABS: MEAN CORPUSCULAR HGB 33.6 pg (27.0-31.0); MEAN PLATELET VOLUME 11.7 fl (9.6-12.3); NUCLEATED RED BLOOD CELL 0.2 % (0.0-0.0); PLATELET COUNT AUTOMATED 113 10*3/uL (130-400); RED BLOOD COUNT 2.23 10*6/uL (4.50-5.90); RED CELL DISTRI WIDTH 19.2 % (0-14.5); WHITE BLOOD COUNT 9.6 10*3/uL (4.8-10.8)
[2020-06-19 06:02] LABS: ALBUMIN 2.4 gm/dl (3.1-4.5); ALKALINE PHOSPHATASE 361 U/L (45-117); BUN 52 mg/dl (7-24); CHLORIDE 126 mmol/L (98-107); CHOLESTEROL 134 mg/dL (<200); CREATININE 1.25 mg/dL (0.70-1.30); FREE T4 0.62 ng/dl (0.76-1.46); HDL CHOLESTEROL 32 mg/dl (40-60); LDL CHOLESTEROL 48 mg/dL (9-159); POTASSIUM 3.3 mmol/L (3.5-5.1); SGOT/AST 185 IU/L (3-35); SGPT/ALT 81 U/L (12-78); SODIUM 157 mmol/L (136-145); TRIGLYCERIDES 272 mg/dl (<150); VLDL CHOLESTEROL 54 mg/dL (6-40)
[2020-06-19 06:37] LABS: MEAN CELL VOLUME 112.1 fl (80.0-94.0)
[2020-06-19 06:46] LABS: INTERNATIONAL NORM RATIO 2.2 (2.0-3.5)
[2020-06-19 06:47] LABS: TOTAL CELLS COUNTED 100 #CELLS
[2020-06-19 06:48] LABS: PLATELET SUFFICIENCY LOW (NORMAL); TOXIC GRANULATION SLIGHT
[2020-06-19 07:22] LABS: VITAMIN D, 25-HYDROXY 28.8 ng/mL (30-100)
[2020-06-20] VITALS (9 sets, daily range): BP systolic 92–116; BP diastolic 38–51
[2020-06-20 06:22] LABS: ALBUMIN 2.3 gm/dl (3.1-4.5); BUN 47 mg/dl (7-24); POTASSIUM 3.4 mmol/L (3.5-5.1); SGOT/AST 154 IU/L (3-35); SGPT/ALT 75 U/L (12-78); SODIUM 155 mmol/L (136-145)
[2020-06-20 06:25] LABS: ALKALINE PHOSPHATASE 340 U/L (45-117); CREATININE 1.29 mg/dL (0.70-1.30); TOTAL PROTEIN 4.8 gm/dL (6.4-8.2)
[2020-06-20 06:26] LABS: CHLORIDE 128 mmol/L (98-107)
[2020-06-20 06:32] LABS: HEMATOCRIT 25.9 % (42.0-52.0); MEAN CELL VOLUME 111.2 fl (80.0-94.0); MEAN CORPUSCULAR HGB 33.5 pg (27.0-31.0); MEAN CORPUSCULAR HGB CONC 30.1 g/dl (33.0-37.0); MEAN PLATELET VOLUME 11.5 fl (9.6-12.3); NUCLEATED RED BLOOD CELL 0.1 10*3/uL (0.0-0.0); NUCLEATED RED BLOOD CELL 1.8 % (0.0-0.0); PLATELET COUNT AUTOMATED 122 10*3/uL (130-400); RED BLOOD COUNT 2.33 10*6/uL (4.50-5.90); RED CELL DISTRI WIDTH 19.5 % (0-14.5); WHITE BLOOD COUNT 4.9 10*3/uL (4.8-10.8)
[2020-06-20 07:23] LABS: TOTAL CELLS COUNTED 100 #CELLS
[2020-06-20 07:24] LABS: BURR CELLS FEW; OVALOCYTES FEW; PLATELET SUFFICIENCY LOW (NORMAL); ROULEAUX SLIGHT; SCHISTOCYTES FEW
[2020-06-20 07:41] LABS: INTERNATIONAL NORM RATIO 1.7 (2.0-3.5)
[2020-06-20 14:27] LABS: ABG BASE EXCESS -5.6 mmol/L (-2.0-2.0); ARTERIAL BLOOD GAS PH 7.43 (7.35-7.45)
[2020-06-20 15:11] LABS: HEMATOCRIT 27.4 % (42.0-52.0); MEAN CELL VOLUME 108.7 fl (80.0-94.0); MEAN CORPUSCULAR HGB 33.7 pg (27.0-31.0); MEAN PLATELET VOLUME 11.4 fl (9.6-12.3); NUCLEATED RED BLOOD CELL 0.1 10*3/uL (0.0-0.0); NUCLEATED RED BLOOD CELL 1.8 % (0.0-0.0); PLATELET COUNT AUTOMATED 139 10*3/uL (130-400); RED BLOOD COUNT 2.52 10*6/uL (4.50-5.90); RED CELL DISTRI WIDTH 19.6 % (0-14.5); WHITE BLOOD COUNT 5.1 10*3/uL (4.8-10.8)
[2020-06-20 15:29] LABS: ALBUMIN 2.3 gm/dl (3.1-4.5); CREATININE 1.49 mg/dL (0.70-1.30); POTASSIUM 3.7 mmol/L (3.5-5.1); TOTAL PROTEIN 5.3 gm/dL (6.4-8.2)
[2020-06-20 15:42] LABS: PLATELET SUFFICIENCY NORMAL (NORMAL); TOTAL CELLS COUNTED 100 #CELLS
== END 2020-06-20 22:10 | disposition hospice, home (50) | DRG 189 ==
LOC: ED 15:24 → ICCU 17:29 → EDHOLD 17:29 → ICCU 18:32 → 5E 06-20 18:53
PROVIDERS: Emergency Medicine; Internal Medicine; Internal Medicine Critical Care Medicine; ADMIT Internal Medicine; ATTEND Internal Medicine
DX: J96.00 Acute respiratory failure, unspecified whether with hypoxia or hypercapnia (principal); I50.31 Acute diastolic (congestive) heart failure; N17.0 Acute kidney failure with tubular necrosis; G93.41 Metabolic encephalopathy; I48.21 Permanent atrial fibrillation; M62.82 Rhabdomyolysis; E87.0 Hyperosmolality and hypernatremia; R65.10 Systemic inflammatory response syndrome (SIRS) of non-infectious origin without acute organ dysfunction; E44.0 Moderate protein-calorie malnutrition; E87.2 Acidosis; F32.3 Major depressive disorder, single episode, severe with psychotic features; Z68.1 Body mass index [BMI] 19.9 or less, adult; R91.1 Solitary pulmonary nodule; E83.41 Hypermagnesemia; J44.9 Chronic obstructive pulmonary disease, unspecified; E78.00 Pure hypercholesterolemia, unspecified; Z60.2 Problems related to living alone; K21.9 Gastro-esophageal reflux disease without esophagitis; F41.1 Generalized anxiety disorder; K57.90 Diverticulosis of intestine, part unspecified, without perforation or abscess without bleeding; E86.0 Dehydration; W19.XXXA Unspecified fall, initial encounter; Y92.009 Unspecified place in unspecified non-institutional (private) residence as the place of occurrence of the external cause; D50.9 Iron deficiency anemia, unspecified; D69.6 Thrombocytopenia, unspecified; E87.8 Other disorders of electrolyte and fluid balance, not elsewhere classified; I11.0 Hypertensive heart disease with heart failure; R73.9 Hyperglycemia, unspecified; R41.0 Disorientation, unspecified; E87.6 Hypokalemia; Z66 Do not resuscitate; Z51.5 Encounter for palliative care; R74.0 Nonspecific elevation of levels of transaminase and lactic acid dehydrogenase [LDH]; F03.90 Unspecified dementia, unspecified severity, without behavioral disturbance, psychotic disturbance, mood disturbance, and anxiety; E86.9 Volume depletion, unspecified; Z87.891 Personal history of nicotine dependence; Z95.1 Presence of aortocoronary bypass graft; Z88.6 Allergy status to analgesic agent; Z87.442 Personal history of urinary calculi; Z95.2 Presence of prosthetic heart valve; Z90.49 Acquired absence of other specified parts of digestive tract; Z79.899 Other long term (current) drug therapy

== ENCOUNTER 2020-06-20 22:13 | Inpatient (IN) | payer OTHER, MEDICARE ==
[~2020-06-20] VITALS: Ht 167.6 cm; Wt 60.3 kg
[2020-06-20 22:20] VITALS: BP 104/54
--- NOTE | 2020-06-20 22:20 | NUR ---
[facility]. ALL MEDCIATIONS RESUMED PER HOSPICE RECOMMENDATIONS.
--- NOTE | 2020-06-20 23:56 | NUR ---
24 HOUR CHART CHECK COMPLETE
--- NOTE | 2020-06-21 01:14 | NUR ---
PRN MORPHINE IV GIVEN AT THIS TIME FOR INCREASED WORK OF BREATHING AND TACHYPNEA RESPIRATORY RATE 30. PATIENT RESPONDING TO PAIN ONLY AT THIS TIME REMAINS ON VENTURI MASK 40% AT 12 LPM OXYGEN.
--- NOTE | 2020-06-21 02:10 | NUR ---
PRN MORPHINE APPEARS TO BE EFFECTIVE AT THIS TIME WORK OF BREATHING AND RESPIRATORY RATE DECREASED AT THIS TIME. WILL CONTINUE TO MONITOR.
[2020-06-21 04:00] VITALS: BP 109/48
--- NOTE | 2020-06-21 04:14 | NUR ---
PRN MORPHINE IV GIVEN AT THIS TIME FOR INCREASED WORK OF BREATHING AND TACHYPNEA.
--- NOTE | 2020-06-21 05:00 | NUR ---
PRN IV MORPHINE APPEARS TO HAVE BEEN EFFECTIVE AT THIS TIME PATIENT WORK OF BREATHING EASIER AND RESPIRATORY RATE 24 AT THIS TIME. WILL CONTINUE TO MONITOR.
--- NOTE | 2020-06-21 05:32 | NUR ---
CALLED TO ROOM BY PA AT THIS TIME TO ASSESS PATIENT. PATIENT WAS FOUND TO HAVE NO APICAL HEART RATE OR SPONTANEOUS RESPIRATIONS VERIFIED BY THIS RN AND DINESH LEHMAN AND DINESH VASQUEZ.
--- NOTE | 2020-06-21 05:35 | NUR ---
NOTIFIED OF PATIENT AT THIS TIME, SHE STATED DR. BLANCHARD WILL SIGN CERTIFICATE. AND SHE WILL NOTIFY DR. SANCHEZ
--- NOTE | 2020-06-21 05:37 | NUR ---
SHIFT DIRECTOR PRIYANKA RUELAS NOTIFIED AT THIS TIME OF PATIENT .
--- NOTE | 2020-06-21 05:40 | NUR ---
ELIN FROM [facility] NOTIFIED AT THIS TIME OF PATIENT AT THIS TIME. ALL QUESTIONS ANSWERED AT THIS TIME. REFERRAL NUMBER [id number]. BODY ON HOLD PENDING VERIFICATION OF TISSUE DONATION.
--- NOTE | 2020-06-21 05:53 | NUR ---
ABEL FROM [facility] NOTIFIED AT THIS TIME OF PATIENT .
--- NOTE | 2020-06-21 05:57 | NUR ---
ELIN FROM [facility] CALLED BACK AND BODY RELEASED AT THIS TIME.
--- NOTE | 2020-06-21 06:20 | NUR ---
PATEL CATHETER AND TWO PERIPHERAL IV'S REMOVED FROM RIGHT UPPER AND FOREARM WITH DRESSING APPLIED.
--- NOTE | 2020-06-21 06:25 | NUR ---
As patient was discharged and readmitted under [facility] under 24 hours ago, [facility] Coroner's Mold Repairer, Lesley, notifed of . Case reviewed. Patient released to go to the home of family's choice.
--- NOTE | 2020-06-21 07:08 | NUR ---
[facility] HERE AT THIS TIME TO RECEIVE BODY AND TRANSFER TO HOME.
== END 2020-06-21 05:32 | disposition expired | DRG 205 ==
LOC: 5E 22:13
PROVIDERS: ADMIT Student in an Organized Health Care Education/Training Program; ATTEND Student in an Organized Health Care Education/Training Program
DX: R91.1 Solitary pulmonary nodule (principal); N17.0 Acute kidney failure with tubular necrosis; E87.0 Hyperosmolality and hypernatremia; G93.40 Encephalopathy, unspecified; R64 Cachexia; E44.0 Moderate protein-calorie malnutrition; I50.32 Chronic diastolic (congestive) heart failure; Z68.1 Body mass index [BMI] 19.9 or less, adult; J90 Pleural effusion, not elsewhere classified; I48.91 Unspecified atrial fibrillation; D69.6 Thrombocytopenia, unspecified; E87.8 Other disorders of electrolyte and fluid balance, not elsewhere classified; R73.9 Hyperglycemia, unspecified; I11.0 Hypertensive heart disease with heart failure; J44.9 Chronic obstructive pulmonary disease, unspecified; Z95.2 Presence of prosthetic heart valve; F41.1 Generalized anxiety disorder; Z90.49 Acquired absence of other specified parts of digestive tract; Z87.891 Personal history of nicotine dependence; W18.39XA Other fall on same level, initial encounter; Y93.89 Activity, other specified; Y92.89 Other specified places as the place of occurrence of the external cause; Y99.8 Other external cause status